=== PATIENT | female | born 1935 | race Two or more races ===

== ENCOUNTER 2024-05-08 14:37 | Inpatient (IN) | payer OTHER ==
[~2024-05-08] VITALS: Ht 149.9 cm; Wt 37.6 kg
[~2024-05-08 14:37] MED LIST: TRAM1TAB98 PO
--- NOTE | 2024-05-08 15:02 | NUR ---
PACIENTE ALERTA Y ORIENTADA EN PERSONA, [place]COM[place] DE [place]. ESTA REFIERE MADRE PRESENTA DESBALANCE DESDE MIERCOLES Y HOY VOMITOS X 6, RUBEN DE DOLOR.
[2024-05-08] MEDS ORDERED: SYNTHROID50 MCG PO (15:09)
[2024-05-08] MEDS ORDERED: ATACAND32 MG (15:09)
[2024-05-08] MEDS ORDERED: AMLODIPINE-OLM1 EACH (15:10)
[2024-05-08] MEDS ORDERED: ATORVASTATIN CA10 MG PO (15:10)
[2024-05-08] MEDS ORDERED: DORZOLAMIDE 2%10 ML OP (15:11)
[2024-05-08] MEDS ORDERED: LUMIGAN2.5 M1 (15:11)
[2024-05-08 17:34] LABS: HEMATOCRIT 40.1 % (36.0-45.00); MEAN CELL VOLUME 96.5 fL (80.00-100.00); MEAN CORPUSCULAR HEMOGLOBIN 33.6 pg (27.00-32.0); MEAN CORPUSCULAR HGB CONC 34.9 g/dl (32.0-36.0); PLATELET COUNT 232 K/uL (150-450); RED BLOOD COUNT 4.16 M/uL (4.00-6.00); RED CELL DISTRIBUTION WIDTH 13.2 % (11.5-14.5)
[2024-05-08 18:00] LABS: INR 1.04; PARTIAL THROMBOPLASTIN TIME 24.2 SECONDS (22.0-34.0); PROTHROMBIN TIME 11.3 SECONDS (9.0-11.5)
[2024-05-08 18:07] LABS: ALBUMIN 4.5 gm/dL (3.4-5.0); BILIRUBIN TOTAL 0.53 mg/dL (0.3-1.2); CALCIUM 9.9 mg/dL (8.5-10.1); CREATININE SERUM 0.84 mg/dL (0.55-1.02); GFR 64.13; GLOBULINA 3.5 G/DL (2.4-3.5); POTASSIUM 4.02 mEq/L (3.5-5.1)
[2024-05-08] MEDS ORDERED: CLOPIDOGREL BISULFATE 75 MG TABLET PO ONE ×2 (19:00→19:12)
[2024-05-08] MEDS ORDERED: NITROGLYCERIN IN 5 % DEXTROSE 50 MG/250 ML KIT IV ONE (19:00)
[2024-05-08] MEDS ORDERED: ASPIRIN 325 MG TABLET PO ONE (19:00)
[2024-05-08] MEDS ORDERED: ENOXAPARIN SODIUM 40 MG/0.4 ML SYRINGE SUBCUTANEO ONE ×2 (19:00→19:16)
[2024-05-08] MEDS ORDERED: NITROGLYCERIN IN 5 % DEXTROSE 50 MG/250 ML BOTTLE IV ONE (19:12)
[2024-05-08 20:01] LABS: PH,URINE 6.5 (5.0-8.0); URINE APPEARANCE Clear; URINE BILIRRUBIN Negative (NEGATIVE); URINE BLOOD Moderate; URINE COLOR Yellow; URINE GLUCOSE Negative (NEGATIVE); URINE KETONE Trace (NEGATIVE); URINE LEUKOCYTE Negative; URINE NITRATE Negative; URINE UROBILINOGEN 0.2 E.U./dl
[2024-05-08 20:05] LABS: URINE BACTERIA 27.7 uL (0.0-1933); URINE EPITHELIAL CELLS 5.4 uL (0.0-38.8); URINE RBC 189.1 uL (0.0-20.8); URINE WBC 6.1 uL (0.0-23.2)
[2024-05-08] MEDS ORDERED: NITROGLYCERIN IN 5 % DEXTROSE 250 ML IV SCH (20:15)
[2024-05-08] MEDS ORDERED: NITROGLYCERIN IN 5 % DEXTROSE 50 MG/250 ML KIT IV SCH (20:15)
[2024-05-08 20:35] LABS: URINE CAST 0.76 uL (0.0-1.40); URINE PROTEIN 100 (NEGATIVE)
[2024-05-08] MEDS ORDERED: FAMOtidine 20 MG TABLET PO SCH (20:39)
[2024-05-08] MEDS ORDERED: CLOPIDOGREL BISULFATE 75 MG TABLET PO SCH (20:39)
[2024-05-08] MEDS ORDERED: ASPIRIN 81 MG TABLET.EC PO SCH (20:40)
[2024-05-08] MEDS ORDERED: METOPROLOL TARTRATE 25 MG TABLET PO SCH (20:44)
[2024-05-08] MEDS ORDERED: NITROGLYCERIN 250 ML IV SCH (20:45)
[2024-05-08] MEDS ORDERED: 0.9 % SODIUM CHLORIDE 1,000 ML IV SCH (20:45)
[2024-05-08] MEDS ORDERED: ATORVASTATIN CALCIUM 10 MG TABLET PO SCH (20:58)
[2024-05-08] MEDS ORDERED: ACETAMINOPHEN 500 MG GEL..CAP PO ONE (21:18)
[2024-05-08 22:34] VITALS: BP 152/66; O2SAT 100
[2024-05-08 23:03] LABS: CHOL HDL RATIO 2.4 (0-5.0); MAGNESIUM 1.9 mg/dL (1.8-2.4); TSH 1.36 uIU/mL (0.358-3.74)
[2024-05-08 23:12] VITALS: BP 146/70; O2SAT 100
[2024-05-09 03:30] VITALS: BP 175/74; O2SAT 96
[2024-05-09] MEDS ORDERED: LEVOTHYROXINE SODIUM 50 MCG TABLET PO SCH (06:00)
[2024-05-09 06:50] LABS: ABG pCO2 40.3 mmHg (35-45)
[2024-05-09 06:51] LABS: BASE EXCESS 1.8 mmol/l; BICARBONATE 26.2 mmol/l (23-25); Tco2 27.4 mmol/l; allen test SATISFACTORY; o2 21 %; puncture site RADIAL RIGHT
[2024-05-09 06:53] LABS: SaO2 96.9 %
[2024-05-09] MEDS ORDERED: NITROGLYCERIN IN 5 % DEXTROSE 250 ML IV SCH (07:30)
[2024-05-09] MEDS ORDERED: CANDESARTAN CILEXETIL 32 MG TABLET PO SCH (09:00)
[2024-05-09] MEDS ORDERED: AMLODIPINE BESYLATE 5 MG TABLET PO SCH (09:00)
[2024-05-09 09:54] VITALS: BP 169/82
[2024-05-09] MEDS ORDERED: LORazepam 2 MG/ML VIAL IV PRN (12:15)
[2024-05-09 18:52] VITALS: BP 145/74; O2SAT 95
[2024-05-09] MEDS ORDERED: LORazepam 1 MG TABLET PO SCH (21:00)
[2024-05-10 02:09] VITALS: BP 147/64
[2024-05-10 08:08] LABS: HEMATOCRIT 34.7 % (36.0-45.00); HEMOGLOBIN 11.7 g/dL (12.0-15.00); MEAN CELL VOLUME 97.3 fL (80.00-100.00); MEAN CORPUSCULAR HEMOGLOBIN 32.9 pg (27.00-32.0); MEAN CORPUSCULAR HGB CONC 33.8 g/dl (32.0-36.0); PLATELET COUNT 206 K/uL (150-450); RED BLOOD COUNT 3.57 M/uL (4.00-6.00); RED CELL DISTRIBUTION WIDTH 13.1 % (11.5-14.5)
[2024-05-10 09:00] VITALS: BP 150/76
[2024-05-10 09:20] LABS: ALBUMIN 3.3 gm/dL (3.4-5.0); BILIRUBIN TOTAL 0.54 mg/dL (0.3-1.2); CALCIUM 8.3 mg/dL (8.5-10.1); CREATININE SERUM 0.53 mg/dL (0.55-1.02); GFR 109.12; GLOBULINA 2.6 G/DL (2.4-3.5); POTASSIUM 3.55 mEq/L (3.5-5.1); TOTAL PROTEIN 5.9 gm/dL (6.4-8.2)
[2024-05-10 09:28] LABS: TSH 6.46 uIU/mL (0.358-3.74)
[2024-05-10] MEDS ORDERED: ISOSORBIDE MONONITRATE 30 MG TABLET PO NR (13:00)
[2024-05-10 18:00] VITALS: BP 157/74; O2SAT 97
[2024-05-11 01:52] VITALS: BP 170/77; O2SAT 98
[2024-05-11 08:46] VITALS: BP 156/76
[2024-05-11] MEDS ORDERED: ISOSORBIDE MONONITRATE 30 MG TABLET PO SCH (09:00)
[2024-05-11 16:00] VITALS: BP 147/83; O2SAT 97
[2024-05-11] MEDS ORDERED: ENOXAPARIN SODIUM 40 MG/0.4 ML SYRINGE SUBCUTANEO SCH (17:00)
[2024-05-11] MEDS ORDERED: DOCUSATE SODIUM 100MG CAP PO SCH (21:00)
[2024-05-12 02:22] VITALS: BP 123/75; O2SAT 96
[2024-05-12 08:17] VITALS: BP 133/82
[2024-05-12 08:55] LABS: HEMATOCRIT 39.8 % (36.0-45.00); HEMOGLOBIN 13.5 g/dL (12.0-15.00); MEAN CORPUSCULAR HEMOGLOBIN 33.5 pg (27.00-32.0); MEAN CORPUSCULAR HGB CONC 33.9 g/dl (32.0-36.0); PLATELET COUNT 149 K/uL (150-450); RED BLOOD COUNT 4.02 M/uL (4.00-6.00); RED CELL DISTRIBUTION WIDTH 13.2 % (11.5-14.5)
[2024-05-12 12:36] LABS: ALBUMIN 3.4 gm/dL (3.4-5.0); BILIRUBIN TOTAL 0.63 mg/dL (0.3-1.2); CALCIUM 8.6 mg/dL (8.5-10.1); CREATININE SERUM 0.55 mg/dL (0.55-1.02); GFR 104.55; T4 FREE 1.08 NG/ML (0.76-1.46); TOTAL PROTEIN 6.4 gm/dL (6.4-8.2)
[2024-05-12 12:39] LABS: POTASSIUM 4.14 mEq/L (3.5-5.1)
[2024-05-12] MEDS ORDERED: ACETAMINOPHEN 500 MG GEL..CAP PO PRN (14:00)
[2024-05-12 17:14] VITALS: BP 98/67
[2024-05-13 00:57] VITALS: BP 123/88; O2SAT 97
[2024-05-13 07:46] VITALS: BP 129/79
[2024-05-13] MEDS ORDERED: METOPROLOL TARTRATE 50 MG TABLET PO SCH (09:00)
[2024-05-13 09:46] VITALS: O2SAT 92
[2024-05-13] MEDS ORDERED: DILTIAZEM HCL 125 MG in 0.9 % SODIUM CHLORIDE 100 ML IV SCH (10:45)
[2024-05-13] MEDS ORDERED: DILTIAZEM HCL 25 MG/5 ML VIAL IV ONE (10:48)
[2024-05-13 16:09] VITALS: O2SAT 90
[2024-05-13] MEDS ORDERED: AMIODARONE HCL 200 MG TABLET PO SCH (17:00)
[2024-05-13 18:11] VITALS: BP 111/65
[2024-05-14 01:00] VITALS: O2SAT 100
[2024-05-14 01:11] VITALS: BP 121/68; O2SAT 97
[2024-05-14 09:13] VITALS: BP 130/70; O2SAT 96
[2024-05-14 16:42] VITALS: BP 110/60
== END 2024-05-15 01:04 | disposition home or self-care (01) | DRG 281 ==
LOC: ER 14:38 → MEDJ 21:05 → SEC-K 23:07 → MEDJ 23:56
PROVIDERS: General Practice; Internal Medicine; ADMIT Internal Medicine; ATTEND Internal Medicine
PROC: BW28ZZZ Computerized Tomography (CT Scan) of Head (ICD-10-PCS; 2024-05-08)
PROC: B24BZZZ Ultrasonography of Heart with Aorta (ICD-10-PCS; 2024-05-08)
PROC: 4A12X4Z Monitoring of Cardiac Electrical Activity, External Approach (ICD-10-PCS; principal; 2024-05-09)
PROC: BW21YZZ Computerized Tomography (CT Scan) of Abdomen and Pelvis using Other Contrast (ICD-10-PCS; 2024-05-09)
PROC: BW24YZZ Computerized Tomography (CT Scan) of Chest and Abdomen using Other Contrast (ICD-10-PCS; 2024-05-12)
DX: I21.4 Non-ST elevation (NSTEMI) myocardial infarction (principal); I50.20 Unspecified systolic (congestive) heart failure; E03.9 Hypothyroidism, unspecified; G30.9 Alzheimer's disease, unspecified; F02.80 Dementia in other diseases classified elsewhere, unspecified severity, without behavioral disturbance, psychotic disturbance, mood disturbance, and anxiety; I11.0 Hypertensive heart disease with heart failure; I71.20 Thoracic aortic aneurysm, without rupture, unspecified
CPT/HCPCS: 71275